=== PATIENT | male | born 1990 | race Caucasian/White ===

== ENCOUNTER 2016-08-19 10:11 | Emergency (ER) | payer MEDICAID ==
--- NOTE | 2016-08-19 10:31 | ED Physician Chart ---
Chief Complaint/HPI - Patient Information Date Seen:: 08/19/16 Time Seen:: 10:25 Chief Complaint:: Dog bite to R posterior leg. History of Present Illness:: Pt sustained dog bite to R posterior leg that belongs to a neighbor when he walked close by his neighbor's home at about 9 am. The dog reportedly is up to date with vaccinations. No other injuries or bodily pain. Pt remains ambulatory without difficulty. Last tetanus immunization was in 2009. Allergies:: Allergies Allergy/AdvReac Type Severity Reaction Status Date / Time No Known Allergies Allergy Verified 08/19/16 10:18 Vitals:: Vital Signs - 8 hr 08/19/16 10:11 Temp 98.4 F HR 97 RR 18 BP 153/106 O2 Sat % 98 Historian:: Patient Family MD/PCP:: Nuvia Dailey LMP:: N/A Review:: Nurse's Note Reviewed Review of Systems - Review of Systems General/Constitutional: No fever, No chills, No weight loss, No weakness, No diaphoresis, No edema, No loss of appetite Skin: No rash, No bruising, Other (Dog bite to R posterior leg.) Head: No headache, No light-headedness Eyes: No loss of vision, No pain, No diplopia ENT: No sore throat Neck: No neck pain, No swelling, No thyromegaly, No stiffness, No mass noted Cardio Vascular: No chest pain, No palpitations, No edema Pulmonary: No SOB, No cough, No wheezing GI: No nausea, No vomiting, No diarrhea, No pain Musculoskeletal: No bone or joint pain, No back pain, Other (R posterior leg pain at dog bite area.) Psychiatric: No prior psych history Hematopoietic: No bruising, No lymphadenopathy Allergic/Immuno: No urticaria, No angioedema Neurological: No syncope, No focal symptoms, No weakness, No paresthesia, No headache, No dizziness, No confusion Past Medical History - Past Medical History Past Medical History: HTN, PUD/GERD Family History: Diabetes Melitus (mother), HTN (father) Social History: Non Smoker, No Alcohol, No Drug Use, Single, Lives With Parents Employment:: unemployed Surgical History: None Psychiatricy History: None Medication: Reviewed Family Medical History - Family Member Mother Hx Family Diabetes: Yes Physical Exam - Physical Examination General/Constitutional: Awake, Well-developed, well-nourished, Alert, No distress, GCS 15, Non-toxic appearing, Ambulatory Other Gen/Cons comments:: Breathes comfortably, speaks clearly, and ambulates without difficulty. Head: Atraumatic Eyes: Lids, conjuctiva normal, PERRL, EOMI Skin: No ecchymosis, Well hydrated, No lymphadenopathy Other Skin comments:: See also Extremities exam below. ENMT: Lips, teeth, gums nl, Oropharynx nl, Tonsils nl Neck: Nontender, Full ROM w/o pain, No nuchal rigidity, No mass, No stridor Respiratory: Nl effort/Exclusion, Clear to Auscultation, No Wheeze/Rhonchi/Rales Cardio Vascular: RRR, No murmur, gallop, rubs GI: No tenderness/rebounding/guarding, No organomegaly, No hernia, Normal BS's, Nondistended, No mass/bruits, No McBurney tenderness Other GI comments:: Obese but soft. Other Extremities comments:: RLE: There is an approx. 0.5 x 1.5 cm area of abrasion at posteroproximal aspect of lower leg without any obvious deep wound. No swelling, erythema, exudate, or active bleeding. FROM of all joints. No detectable motor/sensory/ vascular deficit. Good distal pulse. Neuro/Psych: Alert/oriented (oriented x 3), Judgement/insight normal, Mood normal, Normal gait, No focal deficits ED Septic Shock - . Is Septic Shock (SBP<90, OR Lactate>4 mmol\L) present?: No - <6hrs of presentation: Vital Signs: Vital Signs - 8 hr 08/19/16 10:11 Temp 98.4 F HR 97 RR 18 BP 153/106 O2 Sat % 98 Reassessment (Disposition) - Reassessment Reassessment:: 1055 Pt remains stable. Pt requests to go home immediately after his wound is cleansed and tetanus immunization is given. Pain medication was offered but pt declined because his pain was mild and tolerable. Aftercare instructions have been given. Reassessment Condition:: Improved - Diagnosis Diagnosis:: Dog bite to R posterior leg, stable. - Aftercare/Follow up Instructions Aftercare/Follow-Up Instructions:: Refer to Discharge Instructions Notes:: Animal Bite Report is to be filed per nursing staff as instructed. Wound care instructions have been given. Keep wound clean and dry. May take Tylenol 500 mg tab one tab po q4-6h prn pain. F/U with PCP at [facility] in one day for recheck. Return to ER immediately if condition worsens or if any further questions/problems. Medication Prescribed:: Augmentin 875/125 mg tab one tab po q12h for 10 days. D20 R-0 - Patient Disposition Discharge/Transfer:: Home Time:: 11:00 Condition at Disposition:: Stable, Improved
[2016-08-19] MEDS ORDERED: Triple Antibiotic 0.94 gm Pkt TP STA (10:38)
[2016-08-19] MEDS ORDERED: Triple Antibiotic 0.94 gm Pkt TP ONE (10:46)
== END 2016-08-19 11:15 | disposition home or self-care (01) ==
LOC: ER 10:11
DX: S81.851A Open bite, right lower leg, initial encounter (principal); K21.9 Gastro-esophageal reflux disease without esophagitis; I10 Essential (primary) hypertension; W54.0XXA Bitten by dog, initial encounter; Y93.89 Activity, other specified; Y92.89 Other specified places as the place of occurrence of the external cause; Y99.8 Other external cause status
CPT/HCPCS: Z7502